=== PATIENT | female | born 1985 | race Hispanic/Latino ===

== ENCOUNTER 2017-07-29 20:12 | Emergency (ER) | payer SELFPAY ==
[2017-07-29] MEDS ORDERED: NA CHLORIDE 0.9% 1,000 ML ONE (22:02)
[2017-07-29] MEDS ORDERED: ONDANSETRON 4 MG/2 ML VIAL ONE (22:02)
[2017-07-29] MEDS ORDERED: METOCLOPRAMIDE 10 MG/2mL INJ ONE (22:02)
[2017-07-29 22:25] LABS: Absolute Lymphocytes (CBC) 3.3 K/uL (0.7-4.9); Absolute Monocytes 0.8 K/uL (0.1-1.3); Absolute Neutrophil 5.1 K/uL (1.8-8.0); Basophils % 0.5 % (0-1.3); Eosinophils % 2.7 % (0-4.4); Hematocrit 39.1 % (36.0-45.0); Lymphocytes % 34.5 % (15.3-44.8); MCH 32.7 pg (27.0-35.0); MPV 10.3 fL (7.6-11.3); RBC Red Blood Cell Count 4.07 M/uL (3.86-4.86)
[2017-07-29 22:35] LABS: Potassium 4.1 mEq/L (3.6-5.0)
[2017-07-29 22:42] LABS: Albumin 4.1 g/dL (3.2-5.5); Bilirubin Direct 0.1 mg/dL (0-0.2); Bilirubin Total 0.4 mg/dL (0.3-1.2); Magnesium 2.2 mg/dL (1.8-2.5); Protein, Total 7.2 g/dL (6.0-8.3)
[2017-07-29 22:44] LABS: CKMB Creatine Kinase MB 1.1 ng/ml (0.3-4.0)
[2017-07-29 23:35] LABS: Urine Blood NEGATIVE (NEG); Urine Glucose NEGATIVE (NEG); Urine Protein TRACE (NEG); Urine Specific Gravity 1.015 (1.005-1.030); Urine pH 8.5 (5.0-7.0)
--- NOTE | 2017-07-30 00:06 | EDPHYS ---
Physician Documentation [facility] Name: Pooja Pedraza Age: 32 yrs Sex: Female : 1985 Arrival Date: 07/29/2017 Time: 20:12 Bed 17 Private MD: ED Physician Juan Jose Guerrero HPI: 07/29 21:00 This 32 yrs old Female presents to ER via Ambulatory with complaints of High cp Blood Pressure, Headache. 21:00 The patient has elevated blood pressure and discovered this at home. Onset: The cp symptoms/episode began/occurred gradually, history of hypertension but not currently taking medications. 21:00 Associated signs and symptoms: Pertinent positives: nausea, headache times 4 days, cp Pertinent negatives: chest pain, dizziness, lightheadedness, vomiting, weakness. Severity of symptoms: in the emergency department the blood pressure is improved, 138 mm Hg. The patient has not recently seen a physician. 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 - Social history:: Smoking status: Patient uses tobacco products, denies chronic smoking, but will smoke occasionally. - Ebola Screening: : Patient negative for fever greater than or equal to 101.5 degrees Fahrenheit, and additional compatible Ebola Virus Disease symptoms Patient denies exposure to infectious person Patient denies travel to an Ebola-affected area in the 21 days before illness onset No symptoms or risks identified at this time. ROS: 21:05 Constitutional: Negative for body aches, chills, fever, poor PO intake. cp 21:05 Eyes: Negative for injury, pain, redness, and discharge. cp 21:05 ENT: Negative for drainage from ear(s), ear pain, sore throat, difficulty swallowing, difficulty handling secretions. 21:05 Cardiovascular: Negative for chest pain, edema, palpitations. 21:05 Respiratory: Negative for cough, shortness of breath, wheezing. 21:05 Abdomen/GI: Positive for nausea, Negative for abdominal pain, vomiting, diarrhea, constipation. 21:05 Back: Negative for pain at rest, pain with movement, radiated pain. 21:05 : Negative for urinary symptoms. 21:05 MS/extremity: Negative for injury or acute deformity, decreased range of motion, deformity. 21:05 Skin: Negative for cellulitis, rash. 21:05 Neuro: Positive for headache, Negative for altered mental status, dizziness, seizure activity, syncope, near syncope, weakness. 21:05 All other systems are negative. Exam: 21:12 Constitutional: The patient appears in no acute distress, alert, awake, cp non-diaphoretic, non-toxic, well developed, well nourished. 21:12 Head/Face: Normocephalic, atraumatic. Eyes: Pupils equal round and reactive to light, cp extra-ocular motions intact. Lids and lashes normal. Conjunctiva and sclera are non-icteric and not injected. Cornea within normal limits. Periorbital areas with no swelling, redness, or edema. ENT: Nares patent. No nasal discharge, no septal abnormalities noted. Tympanic membranes are normal and external auditory canals are clear. Oropharynx with no redness, swelling, or masses, exudates, or evidence of obstruction, uvula midline. Mucous membranes moist. Neck: Trachea midline, no thyromegaly or masses palpated, and no cervical lymphadenopathy. Supple, full range of motion without nuchal rigidity, or vertebral point tenderness. No Meningismus. Chest/axilla: Normal chest wall appearance and motion. Nontender with no deformity. No lesions are appreciated. Cardiovascular: Regular rate and rhythm with a normal S1 and S2. No gallops, murmurs, or rubs. Normal PMI, no JVD. No pulse deficits. Respiratory: Lungs have equal breath sounds bilaterally, clear to auscultation and percussion. No rales, rhonchi or wheezes noted. No increased work of breathing, no retractions or nasal flaring. Abdomen/GI: Soft, non-tender, with normal bowel sounds. No distension or tympany. No guarding or rebound. No evidence of tenderness throughout. Skin: Warm, dry with normal turgor. Normal color with no rashes, no lesions, and no evidence of cellulitis. MS/ Extremity: Pulses equal, no cyanosis. Neurovascular intact. Full, normal range of motion. Neuro: Awake and alert, GCS 15, oriented to person, place, time, and situation. Cranial nerves II-XII grossly intact. Motor strength 5/5 in all extremities. Sensory grossly intact. Cerebellar exam normal. Normal gait. 22:58 ECG was reviewed by the Attending Physician. Vital Signs: 20:18 BP 138 / 94; Pulse 81; Resp 17; Temp 97.6; Pulse Ox 99% on R/A; Weight 70.31 kg; Height aj 5 ft. 2 in. (157.48 cm); 21:17 BP 125 / 83; Pulse 61; Resp 16 S; Pulse Ox 100% on R/A; jd3 23:42 BP 117 / 75; Pulse 56; Resp 17 S; Pulse Ox 98% on R/A; Pain 0/10; jd3 20:18 Body Mass Index 28.35 (70.31 kg, 157.48 cm) aj MDM: 20:20 Patient medically screened. 07/30 00:05 Differential diagnosis: hypertensive crisis, Malignant HTN, CVA, intracerebral cp hemorrhage. 00:05 Data reviewed: vital signs, nurses notes, lab test result(s), EKG, radiologic studies, cp CT scan, plain films. Test interpretation: by ED physician or midlevel provider: ECG, plain radiologic studies. Counseling: I had a detailed discussion with the patient and/or guardian regarding: the historical points, exam findings, and any diagnostic results supporting the discharge/admit diagnosis, the presence of at least one elevated blood pressure reading (>120/80) during this emergency department visit, lab results, radiology results, the need for outpatient follow up, a family practitioner, to return to the emergency department if symptoms worsen or persist or if there are any questions or concerns that arise at home. Response to treatment: the patient's symptoms have markedly improved after treatment, VSS. Headache and blood pressure improved. Will discharge to home for continued monitoring and recommend f/u with family physician for elevated blood pressure, and as a result, I will discharge patient. 07/29 21:50 Order name: Basic Metabolic Panel 07/29 21:50 Order name: CBC with Diff 07/29 21:50 Order name: Ckmb; Complete Time: 23:28 07/29 21:50 Order name: CPK; Complete Time: 23:28 cp 07/29 21:50 Order name: LFT's; Complete Time: 23:28 07/29 23:48 Interpretation: Reviewed. 07/29 21:50 Order name: Magnesium; Complete Time: 23:28 cp 07/29 21:50 Order name: Troponin (emerg Dept Use Only); Complete Time: 23:28 07/29 21:50 Order name: CT Head Brain wo Cont 07/29 21:50 Order name: Basic Metabolic Panel; Complete Time: 23:28 EDMS 07/29 23:28 Interpretation: Normal except: GFR 78. 07/29 21:50 Order name: CBC with Automated Diff; Complete Time: 23:28 EDMS 07/29 23:49 Interpretation: Reviewed. 07/29 23:00 Order name: Urine Dipstick--Ancillary (enter results); Complete Time: 23:47 rg2 07/29 23:47 Interpretation: Normal except: UPH 8.5. 07/29 23:00 Order name: Urine --Ancillary (enter results); Complete Time: 23:47 2 07/29 23:47 Interpretation: Reviewed. 07/29 21:50 Order name: Urine Test (obtain specimen); Complete Time: 22:59 07/29 21:50 Order name: Urine Dipstick-Ancillary (obtain specimen); Complete Time: 22:59 cp 07/29 21:50 Order name: EKG; Complete Time: 21:51 cp 07/29 21:50 Order name: Cardiac monitoring; Complete Time: 22:04 07/29 21:50 Order name: EKG - Nurse/Tech; Complete Time: 22:59 cp 07/29 21:50 Order name: IV Saline Lock; Complete Time: 22:04 07/29 21:50 Order name: Labs collected and sent; Complete Time: 22:04 07/29 21:50 Order name: O2 Per Protocol; Complete Time: 21:58 cp 07/29 21:50 Order name: O2 Sat Monitoring; Complete Time: 21:58 cp EC/13 22:58 Rate is 54 beats/min. Rhythm is regular. [place] interval is normal. QRS interval is normal. cp QT interval is normal. No ST changes noted. Interpreted by me. Reviewed by me. Administered Medications: 22:33 Drug: Reglan 10 mg Route: IVP; Site: right antecubital; [facility] 07/30 00:16 Follow up: Response: No adverse reaction; Marked relief of symptoms [facility] 07/29 22:33 Drug: Zofran 4 mg Route: IVP; Site: right antecubital; d3 07/30 00:17 Follow up: Response: No adverse reaction; Nausea is decreased d3 07/29 22:34 Drug: NS 0.9% 1000 ml Route: IV; Rate: 1 bolus; Site: right antecubital; jd3 07/30 00:14 Follow up: Response: No adverse reaction; IV Status: Completed infusion; IV Intake: jd3 1000ml Disposition: 07:30 Co-signature as Attending Physician, Juan Jose Guerrero MD I agree with the assessment and [facility] plan of care. Disposition: 07/30/17 00:05 Discharged to Home. Impression: Headache, Elevated blood-pressure reading, without diagnosis of hypertension. - Condition is Stable. - Discharge Instructions: General Headache Without Cause, How to Take Your Blood Pressure, Ocul-zv-Supe, DASH Eating Plan. - Prescriptions for Zofran 4 mg Oral Tablet - take 1 tablet by ORAL route every 12 hours As needed; 20 tablet. Fiorinal 50- 325-40 mg Oral Capsule - take 1 capsule by ORAL route every 4 hours As needed - not to exceed 6 capsules per day; 20 capsule. - Medication Reconciliation Form, Thank You Letter, Antibiotic Education, Prescription Opioid Use form. - Follow up: Private Physician; When: 1 - 2 days; Reason: Recheck today's complaints. - Problem is new. - Symptoms have improved. Signatures: Dispatcher [employer] Geetha Lowry RN RN aj Anderson, Corey, MD MD cha Page, Corey, PA PA cp Davies, Jonathon RN RN jd3 Corrections: (The following items were deleted from the chart) 00:18 00:05 07/30/2017 00:05 Discharged to Home. Impression: Headache; Elevated jd3 blood-pressure reading, without diagnosis of hypertension. Condition is Stable. Forms are Medication Reconciliation Form, Thank You Letter, Antibiotic Education, Prescription Opioid Use. Follow up: Private Physician; When: 1 - 2 days; Reason: Recheck today's complaints. Problem is new. Symptoms have improved. cp
--- NOTE | 2017-07-30 00:06 | ER ---
Nurse's Notes [facility] Name: Pooja Pedraza Age: 32 yrs Sex: Female : 1985 Arrival Date: 07/29/2017 Time: 20:12 Bed 17 Private MD: Diagnosis: Headache;Elevated blood-pressure reading, without diagnosis of hypertension Presentation: 07/29 20:17 Presenting complaint: Patient states: Headache since Thursday. Transition of care: patient was not received from another setting of care. Onset of symptoms was July 27, 2017. Risk Assessment: Do you want to hurt yourself or someone else? Patient reports no desire to harm self or others. Care prior to arrival: None. 20:17 Method Of Arrival: Ambulatory 20:17 Acuity: RIC 4 20:54 Initial Sepsis Screen: Does the patient meet any 2 criteria? No. Patient's initial jd3 sepsis screen is negative. Does the patient have a suspected source of infection? No. Patient's initial sepsis screen is negative. Triage Assessment: 20:18 Headache History: The patient has had previous headaches and this one is similar to previous episodes. General: Appears in no apparent distress. comfortable, Behavior is calm, cooperative, appropriate for age. Pain: Complains of pain in scalp. Neuro: Level of Consciousness is awake, alert, obeys commands, Oriented to person, place, time, situation, Appropriate for age. Neuro: Reports headache. Respiratory: Airway is patent Respiratory effort is even, unlabored, Respiratory pattern is regular, symmetrical. Derm: Skin is intact, is healthy with good turgor, Skin is pink, warm \T\ dry. normal. 20:55 Pain: Pain at worst was 10 out of 10 on a pain scale. Pain began 2-3 days ago. 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 - Social history:: Smoking status: Patient uses tobacco products, denies chronic smoking, but will smoke occasionally. - Ebola Screening: : Patient negative for fever greater than or equal to 101.5 degrees Fahrenheit, and additional compatible Ebola Virus Disease symptoms Patient denies exposure to infectious person Patient denies travel to an Ebola-affected area in the 21 days before illness onset No symptoms or risks identified at this time. Screenin:54 Abuse screen: Denies threats or abuse. Nutritional screening: No deficits noted. jd3 Tuberculosis screening: No symptoms or risk factors identified. Fall Risk Ambulatory Aid- None/Bed Rest/Nurse Assist (0 pts). Gait- Normal/Bed Rest/Wheelchair (0 pts) Mental Status- Oriented to own ability (0 pts). Total Rose Fall Scale indicates No Risk (0-24 pts). Assessment: 20:50 General: Appears uncomfortable, Behavior is cooperative, appropriate for age. Pain: jd3 Complains of pain in head Quality of pain is described as aching, pressure, sharp, Also complains of nausea, muscle spasms. Neuro: Level of Consciousness is awake, alert, obeys commands, Oriented to person, place, time, situation, Moves all extremities. Gait is steady, Speech is normal, Facial symmetry appears normal, Pupils are PERRLA, Intact. Cardiovascular: Heart tones S1 S2 present Capillary refill < 3 seconds Patient's skin is warm and dry. Respiratory: Airway is patent Respiratory effort is even, unlabored, Respiratory pattern is regular, symmetrical, Breath sounds are clear bilaterally. GI: Abdomen is round Bowel sounds present X 4 quads. Abd is soft and non tender X 4 quads. Reports nausea. : No signs and/or symptoms were reported regarding the genitourinary system. EENT: No signs and/or symptoms were reported regarding the EENT system. Derm: Skin is intact, Skin is dry, Skin is normal, Skin temperature is warm. Musculoskeletal: Circulation, motion, and sensation intact. Range of motion: intact in all extremities. 21:18 Reassessment: Patient appears in no apparent distress at this time. Patient and/or jd3 family updated on plan of care and expected duration. Pain level reassessed. Patient is alert, oriented x 3, equal unlabored respirations, skin warm/dry/pink. awaiting provider to see pt. 23:42 Reassessment: Patient appears in no apparent distress at this time. Patient and/or jd3 family updated on plan of care and expected duration. Pain level reassessed. Patient is alert, oriented x 3, equal unlabored respirations, skin warm/dry/pink. Patient states feeling better. Patient states symptoms have improved. 07/30 00:17 Reassessment: Patient appears in no apparent distress at this time. Patient and/or jd3 family updated on plan of care and expected duration. Pain level reassessed. Patient is alert, oriented x 3, equal unlabored respirations, skin warm/dry/pink. pt reported understanding of discharge instructions, even and steady gait upon discharge. Patient states feeling better. Patient states symptoms have improved. Vital Signs: 07/29 20:18 BP 138 / 94; Pulse 81; Resp 17; Temp 97.6; Pulse Ox 99% on R/A; Weight 70.31 kg; Height aj 5 ft. 2 in. (157.48 cm); 21:17 BP 125 / 83; Pulse 61; Resp 16 S; Pulse Ox 100% on R/A; jd3 23:42 BP 117 / 75; Pulse 56; Resp 17 S; Pulse Ox 98% on R/A; Pain 0/10; jd3 20:18 Body Mass Index 28.35 (70.31 kg, 157.48 cm) ED Course: 20:12 Patient arrived in ED. am2 20:18 Triage completed. aj 20:18 Arm band placed on right wrist. Patient placed in an exam room. aj 20:20 Juan Jose Alejandra PA is PHCP. cp 20:20 Juan Jose Guerrero MD is Attending Physician. cp 20:43 David Hermosillo, LEONOR is Primary Nurse. jd3 20:55 Patient has correct armband on for positive identification. Bed in low position. Call j light in reach. Side rails up X 1. 21:[address] vr 22:00 Inserted saline lock: 20 gauge in right antecubital area, using aseptic technique. cc Blood collected. 22:00 Initial lab(s) drawn, by me, sent to lab. cc 22:07 CT completed. Patient tolerated procedure well. Patient moved back from CT. vm2 22:09 CT Head Brain wo Cont In Process Unspecified. EDMS 23:01 EKG done, by ED staff, reviewed by Juan Jose BOLES. cc 07/30 00:13 No provider procedures requiring assistance completed. IV discontinued, intact, jd3 bleeding controlled, No redness/swelling at site. Pressure dressing applied. Administered Medications: 07/29 22:33 Drug: Reglan 10 mg Route: IVP; Site: right antecubital; jd3 07/30 00:16 Follow up: Response: No adverse reaction; Marked relief of symptoms jd3 07/29 22:33 Drug: Zofran 4 mg Route: IVP; Site: right antecubital; jd3 07/30 00:17 Follow up: Response: No adverse reaction; Nausea is decreased jd3 07/29 22:34 Drug: NS 0.9% 1000 ml Route: IV; Rate: 1 bolus; Site: right antecubital; jd3 07/30 00:14 Follow up: Response: No adverse reaction; IV Status: Completed infusion; IV Intake: jd3 1000ml Intake: 00:14 IV: 1000ml; Total: 1000ml. jd3 Outcome: 00:05 Discharge ordered by . scarlett 00:13 Discharged to home ambulatory. jd3 00:13 Condition: stable 00:13 Discharge instructions given to patient, Instructed on discharge instructions, follow up and referral plans. medication usage, Demonstrated understanding of instructions, follow-up care, medications, Prescriptions given X 2. 00:18 Patient left the ED. jd3 Signatures: Dispatcher [employer] EDMS Geetha Yin, RN Shannan Elliott [place] cc Page, Corey, PA PA cp Moreno, Amanda am2 McGuire, Victoria vm2 Davies, Jonathon, RN RN [email or web address]
--- NOTE | 2017-07-30 08:26 | EKG ---
Test Date: 2017-07-29 Test Time: 22:51:11 Animal Care Specialist: AJ MEASUREMENT RESULTS: Intervals: Rate: 54 IN: 144 QRSD: 96 QT: 434 QTc: 411 [place]: P: 60 IN: 144 QRS: 37 T: 38 INTERPRETIVE STATEMENTS: Sinus bradycardia Otherwise normal ECG Compared to ECG 10/13/2005 09:32:55 Sinus arrhythmia no longer present Electronically Signed On 07-30-17 08:24:35 CDT by Vin Tamayo
--- NOTE | 2017-07-30 08:33 | RAD REPORT ---
EXAM DESCRIPTION: CT - Head Brain Wo Cont - 07/30/2017 7:11 am CLINICAL HISTORY: Headache COMPARISON: None. TECHNIQUE: All CT scans are performed using dose optimization technique as appropriate and may inclu de automated exposure control or mA/KV adjustment according to patient size. FINDINGS: No intracranial hemorrhage, hydrocephalus or extra-axial fluid collection.No areas of brai n edema or evidence of midline shift. The paranasal sinuses and mastoids are clear. The calvarium is intact. IMPRESSION: No acute intracranial abnormality.
== END 2017-07-30 00:18 | disposition home or self-care (01) ==
LOC: ER 20:12
DX: R03.0 Elevated blood-pressure reading, without diagnosis of hypertension (principal); Z72.0 Tobacco use
CPT/HCPCS: 36415; 70450; 80048; 80076; 81003; 81025; 82550; 82553; 83735; 84484; 85025; 93005; 96361; 96374; 96375; 99284; J2405; J2765; J7030

== ENCOUNTER 2023-07-13 20:23 | Emergency (ER) | payer BC ==
--- OUTSIDE RECORDS SUMMARY | 2023-07-13 20:26 | XMS REPORT | Continuity of Care Document ---
Author Name Unknown Address [address] [place] [address] [address] thconnect Address [address] [facility] [address] [place] [address] Care Team Providers Care Electronic Heat Seal Operator Name Role Phone Unavailable Unavailable Unavailable Results Test Description Test Time Test Comments Results Result Co mments Source TSH, THIRD [id number] 05:14:45* Test Item Value Reference Range Interpretation Comme nts TSH, THIRD GENERATION (test code = 2821) 1.510 UIU/ML 0.400-4.100 UNLESS OTHERWISE INDICATED, ALL TESTING PERFORMED AT [facility] [address] [place] [id number] [address] PONY RIDER: BROOKLYN DUARTE M.D. CLIA NUMBER [id number] [facility] [place]. [id number] CBC W/AUTO DIFF WITH [id number] 02:53:48* Test Item Value Reference Range Interpretation Comme nts WBC (test code = 1001) 8.9 K/UL 3.5-11.0 RBC (test code = 1002) 4.12 M/UL 3.80-5.40 HEMOGLOBIN (test code = 1003) 12.5 G/DL 11.5-15.5 HEMATOCRIT (test code = 1004) 37.6 % 34.0-45.0 MCV (test code = 1005) 91.3 fL 80.0-99.0 MCH (test code = 1006) 30.3 PG 25.0-33.0 MCHC (test code = 1007) 33.2 G/DL 31.0-36.0 RDW (test code = 1038) 12.0 % 11.5-15.0 NEUTROPHILS (test code = 1008) 61.9 % LYMPHOCYTES (test code = 1010) 30.2 % MONOCYTES (test code = 1011) 5.9 % EOSINOPHILS (test code = 1012) 1.1 % BASOPHILS (test code = 1013) 0.7 % IMMATURE GRANULOCYTES (test code = 1036) 0.2 % NUCLEATED RBCS (test code = 1065) 0.0 /100 WBC'S See_Comment [Automated messa ge] The system which generated this result transmitted reference range: 0.0. The reference range was not used to interpret this result as normal/abnormal. PLATELET COUNT (test code = 1015) 262 K/UL 130-400 ABSOLUTE NEUTROPHILS (test code = 1066) 5.52 K/UL 1.50-7.50 ABSOLUTE LYMPHOCYTES (test code = 1067) 2.70 K/UL 1.00-4.00 ABSOLUTE MONOCYTES (test code = 1068) 0.53 K/UL 0.20-1.00 ABSOLUTE EOSINOPHILS (test code = 1040) 0.10 K/UL 0.00-0.50 ABSOLUTE BASOPHILS (test code = 1069) 0.06 K/UL 0.00-0.20 ABS IMMATURE GRANULOCYTES (test code = 1020) 0.02 K/UL 0.00-0.10 ABS NUCLEATED RBCS (test code = 24165) 0.00 K/UL 0.00-0.11
--- NOTE | 2023-07-13 21:04 | ER ---
Nurse's Notes [facility] Name: Pooja Pedraza Age: 38 yrs Sex: Female : 1985 Arrival Date: 07/13/2023 Time: 20:23 Bed DX4 Private MD: Diagnosis: Unspecified conjunctivitis;Chalazion left upper eyelid Presentation: 07/12 20:51 Chief complaint: Patient states: LEFT EYE STY STARTED THURSDAY. NOW HAVING REDNESS AND jj7 SWELLING TO LEFT EYE AND SWELLING TO LEFT SIDE OF HER FACE. Coronavirus screen: At this time, the client does not indicate any symptoms associated with coronavirus-19. Ebola Screen: No symptoms or risks identified at this time. Initial Sepsis Screen: Does the patient meet any 2 criteria? No. Patient's initial sepsis screen is negative. Does the patient have a suspected source of infection? No. Patient's initial sepsis screen is negative. Risk Assessment: Do you want to hurt yourself or someone else? Patient reports no desire to harm self or others. Note NASAL SPRAY AND PCN X2. Onset of symptoms was July 10, 2023. 20:51 Method Of Arrival: Ambulatory [facility] 20:51 Acuity: RIC 3 jj7 Triage Assessment: 20:55 General: Appears in no apparent distress. uncomfortable, Behavior is calm, cooperative, jj7 appropriate for age. Pain: Complains of pain in left eye. EENT: Eyes are tearing on outer aspect of conjuctiva of left eye Lid(s) w/ stye noted left upper eyelid. 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 Flu vaccine is not up to date. - Infectious Disease History:: Denies. - Social history:: Smoking status: Reported history of juuling and/or vaping. Patient uses alcohol, occasionally. Patient/guardian denies using street drugs, IV drugs. Screenin:00 [facility] ED Fall Risk Assessment (Adult) History of falling in the last 3 months, jj7 including since admission No falls in past 3 months (0 pts) Confusion or Disorientation No (0 pts) Intoxicated or Sedated No (0 pts) Impaired Gait No (0 pts) Mobility Assist Device Used No (0 pt) Altered Elimination No (0 pt) Score/Fall Risk Level 0 - 2 = Low Risk Oriented to surroundings, Maintained a safe environment, Educated pt \T\ family on fall prevention, incl call for assistance when getting out of bed. Abuse screen: Denies threats or abuse. Nutritional screening: No deficits noted. Tuberculosis screening: No symptoms or risk factors identified. Assessment: 21:00 Reassessment: SEE TRIAGE ASSESSMENT. jj7 Vital Signs: 20:51 BP 143 / 88; Pulse 60; Resp 17; Temp 97.8; Pulse Ox 100% ; Weight 76.2 kg; Height 5 ft. jj7 2 in. ; Pain 3/10; 20:51 Body Mass Index 30.73 (76.20 kg, 157.48 cm) jj7 20:51 Pain Scale: Adult j7 ED Course: 20:25 Patient arrived in ED. ec2 20:30 Gagan Carl MD is Attending Physician. ec2 20:55 Triage completed. jj7 20:55 Arm band placed on right wrist. jj7 21:20 No provider procedures requiring assistance completed. Patient did not have IV access jb4 during this emergency room visit. Administered Medications: 21:13 Drug: ERYTHromycin Ophthalmic Ointment 1 application Ophthalmic once Route: Ophthalmic; jb4 Site: left eye; 21:13 Drug: Amoxicillin-Clavulanate PO 875 mg PO once Route: PO; jb4 Medication: 21:00 VIS not applicable for this client. jj7 Outcome: 21:02 Discharge ordered by . ec2 21:20 Discharged to home ambulatory, with family, jb4 21:20 Condition: stable 21:20 Discharge instructions given to patient, Instructed on discharge instructions, follow up and referral plans. medication usage, Demonstrated understanding of instructions, follow-up care, medications, Prescriptions given X 2, 21:20 Patient left the ED. jb4 Signatures: Wm Cruz RN RN jb4 Kevin Bingham RN RN jj7 Gagan Carl MD MD ec2
--- NOTE | 2023-07-13 21:04 | EDPHYS ---
Physician Documentation [facility] Name: Pooja Pedraza Age: 38 yrs Sex: Female : 1985 Arrival Date: 07/13/2023 Time: 20:23 Bed DX4 Private MD: ED Physician Gagan Carl HPI: 07/12 20:59 This 38 yrs old Female presents to ER via Ambulatory with complaints of Eye ec2 Swelling, Redness of Eye, Facial Swelling. 20:59 Patient arrives today for evaluation of 3 days of eye issues. Patient reports that she ec2 first noticed a stye in the left upper eyelid, states that it is progressively more inflamed and swollen and now has some redness surrounding. Patient reports no fevers or chills, did note that she had some crusting of the left eye. Patient denies any trauma. Patient reports no significant medical problems, no daily medications. 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 Flu vaccine is not up to date. - Infectious Disease History:: Denies. - Social history:: Smoking status: Reported history of juuling and/or vaping. Patient uses alcohol, occasionally. Patient/guardian denies using street drugs, IV drugs. ROS: 20:59 Constitutional: as per hpi ec2 Exam: 20:59 Constitutional: GEN: NAD Head: atraumatic Eyes: EOMI , left upper eyelid with ec2 chalazion noted. Surrounding erythema, intact extraocular motions without pain elicited, intact pupillary response bilaterally. Ears: External ears are normal. CV: regular rate LUNGS: no respiratory distress ABD: non-distended SKIN slight amount of erythema noted to the left maxillary area. No significant swelling appreciated. MSK: no evidence of trauma NEURO: moves all extremities equally Vital Signs: 20:51 BP 143 / 88; Pulse 60; Resp 17; Temp 97.8; Pulse Ox 100% ; Weight 76.2 kg; Height 5 ft. jj7 2 in. ; Pain 3/10; 20:51 Body Mass Index 30.73 (76.20 kg, 157.48 cm) jj7 20:51 Pain Scale: Adult jj7 MDM: 20:30 Patient medically screened. ec2 20:59 Data reviewed: vital signs. ED course: Patient arrives today for evaluation of eye ec2 concerns. Examination remarkable for eye and skin findings as noted above. Suspect chalazion with possible early cellulitis. Differential diagnosis includes as above as well as conjunctivitis. Will discharge home. Return precautions given. Patient otherwise well-appearing no acute distress with reassuring vital signs, no evidence of orbital cellulitis, will currently forego any CT imaging of the orbits, will also forego lab work such as cbc/cmp. . Administered Medications: 21:13 Drug: ERYTHromycin Ophthalmic Ointment 1 application Ophthalmic once Route: Ophthalmic; jb4 Site: left eye; 21:13 Drug: Amoxicillin-Clavulanate PO 875 mg PO once Route: PO; jb4 Disposition Summary: 07/13/23 21:02 Discharge Ordered Notes: Location: Home ec2 Condition: Stable ec2 Diagnosis - Unspecified conjunctivitis ec2 - Chalazion left upper eyelid ec2 Followup: ec2 - With: Private Physician - When: - Reason: Re-evaluation by your physician Discharge Instructions: - Discharge Summary Sheet ec2 - Chalazion ec2 Forms: - Medication Reconciliation Form ec2 - Antibiotic Education ec2 - Prescription Opioid Use ec2 - Patient Portal Instructions ec2 - Leadership Thank You Letter ec2 Prescriptions: - Augmentin 875-125 mg Oral tablet - take 1 tablet ORAL route every 12 hours for 7 days; 14 tablet; Refills: 0, ec2 Product Selection Permitted - Erythromycin 5 mg/gram (0.5 %) Ophthalmic ointment - apply 1 centimeter OPHTHALMIC route 2-3 times daily for 7 days; 1 unit; ec2 Refills: 0, Product Selection Permitted Signatures: Wm Cruz RN RN jb4 Kevin Bingham RN RN jj7 Gagan Carl MD MD ec2
[2023-07-13] MEDS ORDERED: ERYTHROMYCIN 3.5GM OPTH OINT ONE (21:05)
[2023-07-13] MEDS ORDERED: AMOX/K CLAV 875 MG TAB ONE (21:07)
[2023-07-13 22:10] VITALS: BP 143/88; TEMP 97.8; O2SAT 100
== END 2023-07-13 21:20 | disposition home or self-care (01) ==
LOC: ER 20:23
DX: H10.9 Unspecified conjunctivitis (principal); H00.14 Chalazion left upper eyelid
CPT/HCPCS: 99283